=== PATIENT | male | born 1945 | race Caucasian/White ===

== ENCOUNTER → 2020-09-18 | Outpatient (CLI) | payer MEDICARE, OTHER ==
[~2020-09-18] MED LIST: CARTIA XT240 MG PO; COUMADIN1 MG PO; COUMADIN3 MG PO; NITROSTAT0.4 MG SL; SOTALOL80 MG PO; SPIRONOLACTONE1 EACH PO
== END ==
LOC: KOH-I 08-28 09:30
DX: J33.9 Nasal polyp, unspecified (principal); J32.4 Chronic pansinusitis
CPT/HCPCS: 70486

== ENCOUNTER 2021-12-27 11:14 | Emergency (ER) | payer MEDICARE, OTHER ==
[2021-12-27 12:23] LABS: RED BLOOD COUNT 4.79 M/UL (4.20-5.50); WHITE BLOOD COUNT 4.8 K/UL (4.5-11.0)
[2021-12-27 12:29] LABS: BUN/CREATININE RATIO 14 (0-10)
== END 2021-12-27 14:45 | disposition home or self-care (01) ==
LOC: ER1 11:14
PROVIDERS: Emergency Medicine
DX: U07.1 COVID-19 (principal); Z23 Encounter for immunization; E87.1 Hypo-osmolality and hyponatremia; E87.6 Hypokalemia; D69.6 Thrombocytopenia, unspecified; I10 Essential (primary) hypertension; I48.91 Unspecified atrial fibrillation; E78.5 Hyperlipidemia, unspecified
CPT/HCPCS: 71045; 80053; 82550; 82553; 84484; 85025; 99283; M0222